=== PATIENT | female | born 1990 | race Caucasian/White ===

== ENCOUNTER 2025-02-20 21:07 | Emergency (ER) | payer SELFPAY ==
[2025-02-20 21:10] VITALS: BP 117/71; PULSE 73; RESP 17; TEMP 36.7; O2SAT 99; BMI 27.5
--- NOTE | 2025-02-20 21:27 | ED_ITS ---
HPI - General Adult General Chief complaint: Nausea/Vomiting/Diarrhea Stated complaint: ecoli? went on a boat ride at [facility] Time Seen by Provider: 02/20/25 21:27 History of Present Illness ED Provider: Олег MURDOCK narrative: The patient is a 34-year-old female who comes to the emergency room with a 1 day history of nausea and vomiting. She says she started to feel unwell yesterday evening at around 18:00. She developed nausea and vomiting. She had multiple episodes of vomiting throughout the night and today. She has had no significant diarrhea. She thinks she has had a fever although she did not have a thermometer so could not check her temperature. This evening she complained of feeling numbness in both of her hands and her partner recommended that she come to the emergency room and drove her here. No history of abdominal surgeries. She is on no regular medications. She recently stopped taking a control pill. She just finished her menses. The patient was on vacation this week she was boating in the [facility] where there was apparently concern about an allergy waite and E coli in the [place]. She is concerned that she might has been exposed weak coli because she ate food with hands that were wet from the [place]. The patient says that she has a history of an allergic reaction to aspirin but says that she tolerates ibuprofen and other nonsteroidal anti-inflammatories. Related Data Previous Rx's ?Medication ?Instructions ?Recorded famotidine 40 mg tablet 40 mg PO DAILY #7 tabs 02/21 ondansetron 4 mg disintegrating 4 mg PO Q6H PRN nausea and 02/21/25 tablet vomiting #10 tabs potassium chloride 20 mEq 20 meq PO BID 5 days #10 tab s 02/21/25 tablet,extended release (K-Tab) Allergies Allergy/AdvReac Type Severity Reaction Status Date / Time aspirin Allergy Anaphylaxis Verified 02/20/25 21:13 Review of Systems 2 Review of Systems: Yes all other systems are reviewed and are negative [facility] Social History Social History Smoked in Last 30 Days: Yes Use of substances other than those prescribed or required for medical reasons: No Advance Directives: No Advance Directives Information Provided: No Do you have a plan to hurt others: No Plan Patient : No Physical Exam ED Vital Signs: Vital Signs - 24 hr 02/20/25 21:10 02/20/25 23:27 02/21/25 01:00 Temperature 98.0 F 98.5 F 98.5 F Pulse Rate 73 79 79 Respiratory Rate 17 12 12 Blood Pressure 117/71 118/65 118/65 Pulse Oximetry 99 100 100 Oxygen Delivery Method Room Air Room Air Room Air BMI result Body Mass Index 27.5 Const Other: The patient is a 34-year-old woman who was awake and alert. She looks fatigued and somewhat worn out but not in acute pain or distress otherwise. Orientation/consciousness: patient oriented x3 HENMT Other: The face is symmetrical. ?Mucous membranes moist. Eyes Other: Pupils are round equal, conjunctivae are clear, extraocular movements intact Neck Neck: Yes normal visual inspection and Yes full ROM Resp Effort & Inspection: normal respiratory effort Auscultation: clear to auscultation bilaterally Cardio Other: The patient has a regular rate and rhythm. She has a 3/6 systolic murmur. GI Other: The abdomen is soft. There is some mild diffuse upper abdominal tenderness but no focal tenderness. No Steele's sign. Skin General skin exam: no rashes or lesions noted Neuro General: patient oriented x3, gait normal, tone normal, moves all extremities, no focal motor deficits and CN's II-XI intact bilaterally Extrem Other: There is no calf swelling or tenderness. No asymmetry. No peripheral edema. Medications Administered Discontinued Medications Generic Name Dose Route Start Last Admin Trade Name Freq PRN Reason Stop Dose Admin Diphenhydramine HCl 25 mg 02/20/25 21:33 02/20/25 21:52 Diphenhydramine Hcl 50 Mg/Ml Vial IVPUSH 02/20/25 21:34 25 mg ONCE ONE Administration Droperidol 1.25 mg 02/20/25 23:03 02/20/25 23:41 Droperidol 5 Mg/2 Ml Vial IVPUSH 02/20/25 23:04 1.25 mg ONCE ONE Administration Famotidine 20 mg 02/20/25 23:03 02/20/25 23:41 Famotidine/Pf 20 Mg/2 Ml Vial IVPUSH 02/20/25 23:04 20 mg ONCE ONE Administration Sodium Chloride 1,000 mls @ 999 mls/hr 02/20/25 21:45 02/21/25 00:25 Ns IV 02/20/25 22:45 Infused .Q1H1M BALDO Infusion Potassium Chloride 10 meq in 100 mls @ 100 mls/hr 02/20/25 22:30 02/21/25 00:25 Potassium Chloride/H20 IV 02/20/25 23:29 Infused ONCE ONE Infusion Ketorolac Tromethamine 10 mg 02/20/25 23:03 02/20/25 23:44 Ketorolac Tromethamine 15 Mg/Ml Vial IVPUSH 02/20/25 23:04 10 mg ONCE ONE Administration Metoclopramide HCl 10 mg 02/20/25 21:33 02/20/25 21:53 Metoclopramide Hcl 10 Mg/2 Ml Vial IVPUSH 02/20/25 21:34 10 mg ONCE ONE Administration Potassium Chloride 40 meq 02/21/25 00:47 02/21/25 00:52 Potassium Chloride Er 20 Meq Tab.Er.Prt PO 02/21/25 00:48 40 meq ONCE ONE Administration Medical Decision Making Medical Decision Making [facility] Narrative: The patient is a 34-year-old female who presents with a 24 hour history of a lot of vomiting also with some abdominal pain. It is possible this could be a case of food poisoning. She raised the question of whether this might be coli but given the lack of any significant diarrhea I think an E coli infection is unlikely. She was treated symptomatically initially with IV metoclopramide and IV diphenhydramine. She felt mildly better. She was subsequently given ketorolac, droperidol, and famotidine. She then felt significantly better. I performed an informal bedside ultrasound of the right upper quadrant. I was able to visualize her gallbladder and I saw no shadowing stones or and he pericholecystic fluid. There was no sonographic Steele's. The patient was given supplemental potassium. She was given the option of having an additional IV bag of fluids but she was feeling well enough that she would prefer to go home. She tolerated a trial of oral intake. Fortunately the patient does not have insurance. She says that she turns too much money to qualify for [employer]. She is encouraged to try [employer] again. It also seems as though she is planning on getting to her partner (who was with her in the emergency room) and would then be getting on his insurance. She was given prescriptions for ondansetron, famotidine, and oral potassium chloride. She should return if worse. Lab Data 02/20/25 21:49 02/20/25 21:49 Labs: Lab Results 02/20/25 02/20/25 Range/Units 21:49 23:34 WBC 10.3 (4.8-10.8) X10*3/uL RBC 4.62 (4.20-5.50) X10*6/uL Hgb 14.1 (12.0-16.0) g/dl Hct 39.6 (37.0-47.0) % MCV 85.7 (80.0-98.0) fL MCH 30.5 (27.0-33.0) pg MCHC 35.6 H (31.0-35.0) g/dl RDW 12.7 (11.0-16.0) % Plt Count 270 (160-400) X10*3/uL MPV 11.2 (9.4-12.3) fL Immature Gran % (Auto) 0.4 (0.0-0.4) % Neut % (Auto) 87.3 H (45-73) % Lymph % (Auto) 9.0 L (20-40) % [place] % (Auto) 3.2 (2-11) % Eos % (Auto) 0.0 (0-4) % Baso % (Auto) 0.1 (0-2) % Lymph # (Auto) 0.9 L (1.2-4.9) X10*3/uL [place] # (Auto) 0.3 (0.1-1.2) X10*3/uL Eos # (Auto) 0.0 (0.0-0.4) X10*3/uL Baso # (Auto) 0.0 (0.0-0.2) X10*3/uL Abs Immat Gran (auto) 0.04 H (0.00-0.03) X10*3/uL Absolute Neuts (auto) 9.0 H (2.0-8.3) x10*3/uL Absolute Nucleated RBC 0.000 (0.0-0.012) X10*3/uL Nucleated RBC % (auto) 0.0 (0.0-0.2) /100WBC Sodium 135 (135-145) mmol/L Potassium 2.9 L* (3.3-5.1) mmol/L Chloride 102 (96-108) mmol/L Carbon Dioxide 21 L (22-29) mmol/L Anion Gap 15 (12-20) BUN 12 (9-16) mg/dL Creatinine 0.60 (0.5-1.4) mg/dL Estim Creat Clear Calc 131.4 Estimated GFR > 60 Random Glucose 119 H (60-115) mg/dL Calcium 9.4 (8.4-10.2) mg/dL Magnesium 1.9 (1.6-2.6) mg/dL Total Bilirubin 1.0 (0.0-1.0) mg/dL AST 28 (5-31) U/L ALT 36 H (0-31) U/L Alkaline Phosphatase 76 (39-117) U/L Total Protein 7.5 (6.5-8.0) g/dL Albumin 4.9 (3.5-5.0) g/dL Lipase 11 (8-78) U/L Beta HCG, Quant < 2 mIU/mL Urine Color Yellow Urine Appearance Clear Urine pH 7.0 (5.0-9.0) Ur Specific [place] >= 1.030 H (1.005-1.025) Urine Protein Trace (Neg-Trace) mg/dL Urine Glucose (UA) Negative (Negative) mg/dL Urine Ketones >=160 (Negative) mg/dL Urine Blood Negative (Negative) Urine Nitrite Negative (Negative) Ur Leukocyte Esterase Negative (Negative) Urine RBC 0-2 (0-2) /HPF Urine WBC 0-5 (0-5) /HPF Ur Squamous Epith Cells 11-20 (0-2) /HPF Urine Bacteria 2+ (None Seen) Hyaline Casts 0-2 (0-2) /LPF Discharge Plan Discharge Clinical Impression: Abdominal pain with vomiting, Hypokalemia Patient Disposition: Home, Self-Care Instructions: Hypokalemia (ED), Acute Nausea and Vomiting (ED) Additional Instructions: Please rest and take it easy tonight. If you feel like taking fluids please take clear fluids like apple juice or other fluids you can look through. If you feel like eating any food eat simple foods like crackers, toast, or well cooked rice. Rest and take it easy tomorrow as well. I have sent prescriptions for ondansetron for nausea, famotidine, a stomach acid reducing medication, and also for supplemental potassium tablets (your potassium was somewhat low). I would recommend taking the famotidine for a week and using the ondansetron as needed for nausea. Also be reasonable to take the potassium for 5 days as prescribed twice a day. However if you are feeling significantly better tomorrow it is not necessary that you take any these medications. Please again look into applying for [employer] to see if anything is changed that might allow you to qualify for. If you are significantly worse please return to the emergency department. Prescriptions: New ondansetron 4 mg tablet,disintegrating 4 mg PO Q6H PRN (Reason: nausea and vomiting) Qty: 10 0RF famotidine 40 mg tablet 40 mg PO DAILY Qty: 7 0RF potassium chloride [K-Tab] 20 mEq tablet extended release 20 meq PO BID 5 Days Qty: 10 0RF Interventions: ED Discharge Assessment Last Done: 02/21/25 01:00 Print Language: Croatian
[2025-02-20 21:54] LABS: MANUAL DIFF FLAG NO
[2025-02-20 21:55] LABS: Hematocrit 39.6 % (37.0-47.0); Hemoglobin 14.1 g/dl (12.0-16.0); Imm Gran Abs Auto 0.04 X10*3/uL (0.00-0.03); Imm Gran Pct Auto 0.4 % (0.0-0.4); Lymphocytes Absolute Auto 0.9 X10*3/uL (1.2-4.9); Mean Corpuscular HGB Conc 35.6 g/dl (31.0-35.0); Mean Corpuscular Hemoglobin 30.5 pg (27.0-33.0); Mean Corpuscular Volume 85.7 fL (80.0-98.0); NRBC Abs Auto 0.000 X10*3/uL (0.0-0.012); NRBC Pct Auto 0.0 /100WBC (0.0-0.2); Platelet Count 270 X10*3/uL (160-400); Red Blood Count 4.62 X10*6/uL (4.20-5.50); White Blood Count 10.3 X10*3/uL (4.8-10.8)
[2025-02-20 22:20] LABS: Alanine Aminotransferase 36 U/L (0-31); Albumin Level 4.9 g/dL (3.5-5.0); Alkaline Phosphatase 76 U/L (39-117); Anion Gap 15 (12-20); Aspartate Amino Transferase 28 U/L (5-31); Blood Urea Nitrogen 12 mg/dL (9-16); Calcium 9.4 mg/dL (8.4-10.2); Carbon Dioxide 21 mmol/L (22-29); Chloride 102 mmol/L (96-108); Creatinine Clr Calc Pharmacy 131.4; Estimated Glomerular Filt Rate > 60; Lipase 11 U/L (8-78); Magnesium 1.9 mg/dL (1.6-2.6); Potassium 2.9 mmol/L (3.3-5.1); Sodium 135 mmol/L (135-145); Total Protein 7.5 g/dL (6.5-8.0)
[2025-02-20] MEDS: Potassium Chloride/H20 10 MEQ/100 ML PIGGYBACK 100 MEQ IV (22:46)
[2025-02-20 23:27] VITALS: BP 118/65; PULSE 79; RESP 12; TEMP 36.9; O2SAT 100
[2025-02-20 23:55] LABS: Appearance Urine Clear; Glucose Urine UA Negative (Negative); PH 7.0 (5.0-9.0); Specific Gravity - Urine >= 1.030 (1.005-1.025)
[2025-02-21] MEDS: Potassium Chloride ER 20 MEQ TAB.ER.PRT 40 MEQ PO (00:52)
[2025-02-21 01:00] VITALS: BP 118/65; PULSE 79; RESP 12; TEMP 36.9; O2SAT 100
== END 2025-02-21 01:00 | disposition home or self-care (01) ==
PROVIDERS: Emergency Provider Emergency Medicine
DX: R11.2 Nausea with vomiting, unspecified (principal); E87.6 Hypokalemia; R10.2 Pelvic and perineal pain; R20.0 Anesthesia of skin; R19.7 Diarrhea, unspecified; Z79.899 Other long term (current) drug therapy
CPT/HCPCS: 36415; 80053; 81001; 83690; 83735; 84702; 85025; 96361; 96374; 96375; 99284; J1200; J1308; J1790; J1885; J2765; J3480